=== PATIENT | female | born 1945 | race Caucasian/White ===

== ENCOUNTER 2018-02-04 12:51 | Day surgery (SDC) | payer MEDICARE, MEDICAID ==
[2018-02-04] MEDS ORDERED: Marcaine 0.5% SDV 10 ML IJ ONE (12:52)
[2018-02-04] MEDS ORDERED: Depo-Medrol 40 MG/ML IM ONE (12:52)
[2018-02-04] MEDS ORDERED: Xylocaine 1% Vial 30 ML PF IJ ONE (12:52)
[2018-02-04] MEDS ORDERED: Lactated Ringers 1,000 ML IV ONE (14:48)
--- NOTE | 2018-02-04 15:27 | XRAY ---
9 seconds fluoroscopy time in surgery for right SI joint injection.
--- NOTE | 2018-02-09 12:12 | XRAY ---
Indication: Right SI joint injection. Intraoperative fluoroscopy was provided for 9 seconds. Single digital spot image submitted for interpretation demonstrates a needle tip projecting over the inferior right SI joint. Correlate with intraoperative findings/report.
== END 2018-02-04 14:40 | disposition home or self-care (01) ==
LOC: SDC-PAIN 12:51
PROVIDERS: ATTEND Psychiatry & Neurology Pain Medicine
DX: M53.3 Sacrococcygeal disorders, not elsewhere classified (principal)
CPT/HCPCS: 72020; 77002; G0260; 27096; J1030; J2001

== ENCOUNTER 2019-05-13 06:29 | Day surgery (SDC) | payer MEDICARE ==
--- NOTE | 2019-05-11 13:21 | HP ---
DATE OF SURGERY: 05/13/2019 ANTICIPATED PROCEDURE: Colonoscopy. HISTORY OF PRESENT ILLNESS: Positive Cologuard. PAST MEDICAL HISTORY: ALLERGIES: NONE. MEDICATIONS: None. PAST SURGICAL HISTORY: Triple bypass. Cholecystectomy. D&C. SOCIAL HISTORY: Negative. FAMILY HISTORY: Negative. REVIEW OF SYSTEMS: Heart disease, hypertension. PHYSICAL EXAMINATION: VITAL SIGNS: Normal. CHEST: Clear. COR: Regular. ABDOMEN: Satisfactory. IMPRESSION: Positive Cologuard. PLAN: Colonoscopy.
[2019-05-13] MEDS ORDERED: Lactated Ringers 1,000 ML IV SCH (07:00)
[2019-05-13] MEDS ORDERED: Lactated Ringers 1,000 ML IV ONE (07:00)
[2019-05-13] MEDS ORDERED: DIPRIVAN 200 MG/20 ML IV ONE ×2 (08:39→08:49)
[2019-05-13] MEDS ORDERED: GlucaGen 1 MG ONE (08:47)
[2019-05-13 10:06] VITALS: O2SAT 94
[2019-05-13 10:15] VITALS: BP 146/70; PULSE 77
--- NOTE | 2019-05-14 08:36 | OP ---
SURGERY DATE/TIME: 05/13/2019 0838 PREOPERATIVE DIAGNOSIS: Positive Cologuard. POSTOPERATIVE DIAGNOSIS: One solid polyp 1 cm. PROCEDURES: 1) Colonoscopy complete to cecum. 2) Hot polypectomy x1. SURGEON: Jensen Hutchison M.D. ANESTHESIA: MAC. COMPLICATIONS: None. CONDITION: Stable. INDICATION: Patient presents with positive Cologuard. DESCRIPTION OF PROCEDURE: Taken to endoscopy. MAC sedation provided. Anal digital examination satisfactory. Scope introduced. Scope advanced to the cecum. Base of cecum circumferential view was normal. Excellent prep. Six minute withdrawal time. Circumferential withdrawal one - 1 cm polyp taken with hot biopsy forceps to extinction. Pathology is pending. The patient tolerated the procedure well. Recommending this for normal. PLAN: Follow up three years. She will call for her path report as we are in a Coronavirus warning.
== END 2019-05-13 10:15 | disposition home or self-care (01) ==
LOC: SDC 06:29
PROVIDERS: ATTEND Surgery
DX: D12.3 Benign neoplasm of transverse colon (principal); I11.9 Hypertensive heart disease without heart failure
CPT/HCPCS: 88305; 99100; J1610; J2704

== ENCOUNTER 2019-09-29 08:56 | Day surgery (SDC) | payer MEDICARE ==
[2019-09-29] MEDS ORDERED: Depo-Medrol 40 MG/ML IM ONE (08:57)
[2019-09-29] MEDS ORDERED: LIDOCAINE HCL 2% 100 MG/5 ML IJ ONE (08:57)
[2019-09-29] MEDS ORDERED: DIPRIVAN 200 MG/20 ML IV ONE (10:28)
[2019-09-29] MEDS ORDERED: Ketamine HCl 50 MG/ML ONE (10:28)
--- NOTE | 2019-09-29 12:33 | XRAY ---
Indication: Bilateral L4-S1 MBB. Intraoperative fluoroscopy was provided for 14 seconds. Single digital spot image submitted for interpretation demonstrates posterior needle tips projecting over the expected course of the left and right L4-S1 nerve roots. Correlate with intraoperative findings/report.
--- NOTE | 2019-09-29 12:44 | XRAY ---
14 seconds of fluoroscopy was used in surgery for a bilateral L4-L5 and L5-S1 MBB.
[2019-09-29] MEDS ORDERED: Lactated Ringers 1,000 ML IV ONE (14:39)
== END 2019-09-29 10:50 | disposition home or self-care (01) ==
LOC: SDC-PAIN 08:56
PROVIDERS: ATTEND Psychiatry & Neurology Pain Medicine
DX: M47.816 Spondylosis without myelopathy or radiculopathy, lumbar region (principal); I10 Essential (primary) hypertension; J44.9 Chronic obstructive pulmonary disease, unspecified; K21.9 Gastro-esophageal reflux disease without esophagitis; F41.8 Other specified anxiety disorders; Z79.899 Other long term (current) drug therapy
CPT/HCPCS: 64493; 64494; 72020; 77002; J1030; J2704

== ENCOUNTER 2020-11-09 07:26 | Day surgery (SDC) | payer MEDICARE ==
--- NOTE | 2020-11-06 09:05 | HP ---
DATE OF SURGERY: 11/09/2020 HISTORY OF PRESENT ILLNESS: The patient presents for double endoscopy. The patient reports anemia from her family practice office. States she has a grandmother with colon cancer. Denies any GI signs or symptoms at this time. Her last colonoscopy was a year ago and she had a polyp. PAST MEDICAL HISTORY: Myocardial infarction, heart stent, heart disease, coronary artery disease, hypertension. PAST SURGICAL HISTORY: Laparoscopic cholecystectomy. Coronary artery bypass graft surgery. ALLERGIES: NKDA. MEDICATIONS: Plavix, aspirin, Claritin, isosorbide dinitrate, losartan, metoprolol, Nitro, omeprazole, rosuvastatin, iron, potassium. FAMILY HISTORY: Bone cancer. Lung cancer. Bladder cancer. SOCIAL HISTORY: None. REVIEW OF SYSTEMS: CONSTITUTIONAL: Denies fever or chills. CHEST: Denies shortness of breath. CVS: Denies chest pain. ABDOMEN: Denies abdominal pain, nausea, vomiting, diarrhea, constipation or rectal bleeding. PHYSICAL EXAMINATION: GENERAL: No acute distress. CHEST: Nonlabored. No shortness of breath. CVS: Regular rate and rhythm. ABDOMEN: Soft, nontender to palpation. IMPRESSION: Anemia, history of colon polyps. PLAN: EGD and colonoscopy with Dr. Jensen Hutchison. As dictated by Shagufta Allison NP.
[2020-11-09] MEDS ORDERED: Lactated Ringers 1,000 ML IV ONE (08:20)
[2020-11-09] MEDS ORDERED: Lactated Ringers 1,000 ML IV SCH (08:30)
[2020-11-09] MEDS ORDERED: Xylocaine-Mpf 2% 5 Ml Vial ONE (10:21)
[2020-11-09] MEDS ORDERED: DIPRIVAN 200 MG/20 ML IV ONE ×2 (10:21→10:30)
--- NOTE | 2020-11-09 11:49 | OP ---
SURGERY DATE/TIME: 11/09/2020 1025 PREOPERATIVE DIAGNOSIS: Anemia. POSTOPERATIVE DIAGNOSES: 1) Chronic gastritis. 2) Normal colon except for mild to moderate internal hemorrhoids. PROCEDURES: 1) EGD with cold biopsy x1. 2) Colonoscopy complete to cecum. SURGEON: Jensen Hutchison M.D. ANESTHESIA: MAC. COMPLICATIONS: None. CONDITION: Stable. INDICATION: A patient requiring evaluation. DESCRIPTION OF PROCEDURE: Taken to endoscopy. Left lateral decubitus position. Scope introduced. Pharyngoesophageal junction normal. Esophagus normal down to gastroesophageal junction. The gastroesophageal junction satisfactory. Stomach satisfactory. There is clearly a chronic gastritis-type appearance. Debone Supervisor biopsy with cold biopsy. Pylorus satisfactory. Duodenal bulb satisfactory. Second portion satisfactory. Scope withdrawn. No hiatal hernia from below. Scope withdrawn. Anal digital examination satisfactory. Scope advanced to the appendix. Appendiceal orifice normal. Ileocecal valve normal. Base of the cecum normal. Ascending, hepatic, transverse, splenic, descending, sigmoid, rectum and anus mild to moderate internal hemorrhoids. The patient tolerated the procedure satisfactorily. No signs of bleeding on either the upper or the lower scope.
[2020-11-09 11:54] VITALS: BP 136/69; PULSE 83; O2SAT 98
== END 2020-11-09 11:56 | disposition home or self-care (01) ==
LOC: SDC 07:26
PROVIDERS: ATTEND Surgery
DX: K29.50 Unspecified chronic gastritis without bleeding (principal); D64.9 Anemia, unspecified; K64.8 Other hemorrhoids; Z80.0 Family history of malignant neoplasm of digestive organs; Z86.010 Personal history of colon polyps; Z79.899 Other long term (current) drug therapy; Z79.01 Long term (current) use of anticoagulants
CPT/HCPCS: 88305; 88342; 99100; J2704